=== PATIENT | female | born 1975 ===

== ENCOUNTER 2024-04-07 07:25 | Day surgery (SDC) | payer BC, SELFPAY | END 2024-04-07 14:10 | disposition home or self-care (01) | LOC: GI 07:25 | PROVIDERS: ATTENDING PHYSICIAN Internal Medicine | DX: Z12.11 Encounter for screening for malignant neoplasm of colon (principal); K57.30 Diverticulosis of large intestine without perforation or abscess without bleeding; D12.3 Benign neoplasm of transverse colon; D12.5 Benign neoplasm of sigmoid colon; D12.8 Benign neoplasm of rectum | CPT/HCPCS: 45385; 45380; 88305 ==